=== PATIENT | female | born 1990 | race Caucasian/White ===

== ENCOUNTER 2018-03-06 21:25 | Outpatient (CLI) | payer OTHER ==
[2018-03-06 23:12] VITALS: BP 131/81
[2018-03-06 23:40] LABS: Bilirubin,Urine NEG (Negative); Blood,Urine NEG (Negative); Color,Urine Yellow (Yellow); Mucus,Urine FEW /HPF; Protein,Urine <15 mg/dL mg/dL (Negative); Urobilinogen,Urine < 2.0 mg/dL (<2.0)
[2018-03-06] MEDS ORDERED: LACTATED RINGERS 500 ML IV ONE (23:55)
== END 2018-03-07 00:03 | disposition home or self-care (01) ==
LOC: TRG 21:25
PROVIDERS: ATTEND Obstetrics & Gynecology
DX: O26.893 Other specified pregnancy related conditions, third trimester (principal); R60.9 Edema, unspecified; R51 Headache; R25.2 Cramp and spasm; Z87.891 Personal history of nicotine dependence; Z88.3 Allergy status to other anti-infective agents
CPT/HCPCS: 59025; 81001

== ENCOUNTER 2018-03-18 05:12 | Inpatient (IN) | payer OTHER ==
[2018-03-18] MEDS ORDERED: LACTATED RINGERS 1,000 ML ONE ×3 (06:36→11:09)
[2018-03-18 06:53] LABS: Hematocrit 32.2 % (30.3-42.9); Hemoglobin 10.4 gm/dl (10.1-14.3); Mean Corpuscular HGB Conc 32 % (30-34); Platelet Count 260 K/mm3 (140-440); Red Blood Count 5.43 M/mm3 (3.65-5.03); Red Cell Distribution Width 15.1 % (13.2-15.2)
[2018-03-18] MEDS: LACTATED RINGERS 1,000 ML IV SCH ×2 (07:00→08:00)
[2018-03-18 07:20] LABS: Mean Corpuscular Hemoglobin 19 pg (28-32); Mean Corpuscular Volume 59 fl (79-97)
--- NOTE | 2018-03-18 08:02 | History and Physical Report ---
History of Present Illness Date of examination: 03/18/18 Date of admission: 03/18/18 05:12 Chief complaint: Scheduled History of present illness: 27-year-old at ~ 38+1 weeks presents for primary , she is a [facility] patient. course has been complicated by pre- gestational diabetes, hypertension and morbid obesity. 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 denies: smoking, alcohol abuse, IV drug use - Obstetrical History Expected Date of Delivery: 03/31/18 Actual Gestation: 38 Week(s) 1 Day(s) : 2 Para: 0 Medications and Allergies Allergies Allergy/AdvReac Type Severity Reaction Status Date / Time benzoyl peroxide Allergy Swelling Verified 03/06/18 23:57 Review of Systems Constitutional: no weight gain, no fever, no chills Eyes: no diplopia Cardiovascular: no chest pain, no orthopnea, no syncope, no lightheadedness, no shortness of breath, no dyspnea on exertion, no paroxysmal nocturnal dyspnea, no high blood pressure Respiratory: no cough, no cough with sputum, no shortness of breath, no dyspnea on exertion Gastrointestinal: no abdominal pain, no nausea, no vomiting, no diarrhea, no heartburn, no indigestion Genitourinary: no vaginal bleeding, no vaginal discharge, no leakage of fluid, no contractions - Physical Exam Cardiovascular: Regular rate, Normal S1, Normal S2 Lungs: Positive: Clear to auscultation, Normal air movement Abdomen: Positive: normal appearance, soft. Negative: distention, tenderness, guarding, rigidity Genitourinary (Female): Positive: normal external genitalia Uterus: Positive: enlarged (EFW ~ 5000). Negative: tender Results Result Diagrams: 03/18/18 06:15 Abnormal lab results 03/18/18 Range/Units 06:15 RBC 5.43 H (3.65-5.03) M/mm3 MCV 59 L (79-97) fl MCH 19 L (28-32) pg All other labs normal. Assessment and Plan A: 27-year-old at 38+1 weeks presents for primary -Category 1 tracing Issues -Inspected macrosomia -Pre-gestational diabetes -Chronic hypertension -Hypothyroidism Meds: -Insulin [id number]/[id number]/56N -Levothyroxine 25 g daily P: -Obtain routine labs -She has been consented -Proceed to the OR once available - Patient Problems (1) 38 weeks gestation of Current Visit: Yes Status: Acute (2) Macrosomia affecting management of mother in third trimester, single gestation Current Visit: Yes Status: Acute (3) Diabetes in Current Visit: Yes Status: Acute (4) Hypertension affecting in third trimester Current Visit: Yes Status: Acute
[2018-03-18] MEDS ORDERED: PEPCID IV NR (08:30)
[2018-03-18] MEDS ORDERED: BICITRA PO NR (08:30)
[2018-03-18] MEDS ORDERED: REGLAN IV NR (08:30)
[2018-03-18] MEDS ORDERED: EMLA TP PRN (09:00)
[2018-03-18] MEDS ORDERED: ANCEF/STERILE WATER 2 GM/20 ML 2 GM/20 ML SYRINGE IV NR (09:00)
[2018-03-18] MEDS ORDERED: PITOCin/NS 20 UNIT/1000ML DRIP 20 UNITS/1,000 ML BAG IV SCH ×2 (09:00→12:00)
[2018-03-18] MEDS ORDERED: D5LR 1,000 ML IV SCH ×2 (09:00→12:00)
[2018-03-18] MEDS ORDERED: ASTRAMORPH PF 10MG/10ML ONE (09:23)
[2018-03-18] MEDS ORDERED: NEO SYNEPHRINE/NS Syringe(OR USE) IV ONE (09:23)
[2018-03-18] MEDS ORDERED: NACL 0.9% IR ONE (10:00)
[2018-03-18] MEDS ORDERED: WATER FOR IRRIG STERILE IR ONE (10:00)
[2018-03-18] MEDS ORDERED: SUBLIMAZE ONE (10:04)
[2018-03-18] MEDS ORDERED: TORADOL ONE (11:02)
[2018-03-18] MEDS ORDERED: SENOKOT PO PRN (11:33)
[2018-03-18] MEDS ORDERED: TUCKS PAD TP PRN (11:33)
[2018-03-18] MEDS ORDERED: NARCAN 0.4 MG/1 ML IV PRN ×2 (11:33→12:43)
[2018-03-18] MEDS ORDERED: ANUCORT-HC PR PRN (11:33)
[2018-03-18] MEDS ORDERED: LANSINOH TP PRN (11:33)
[2018-03-18] MEDS ORDERED: MYLICON PO PRN (11:33)
[2018-03-18] MEDS ORDERED: ZOFRAN IV PRN (11:33)
[2018-03-18] MEDS ORDERED: TYLENOL PO PRN (11:33)
[2018-03-18] MEDS ORDERED: MILK OF MAGNESIA PO PRN (11:33)
[2018-03-18] MEDS ORDERED: TORADOL IV PRN (11:33)
--- NOTE | 2018-03-18 11:33 | Operative Report ---
Operative Report Operative Report: DATE: 03/18/2018 PREOPERATIVE DIAGNOSIS: 27-year-old at ~ 38 weeks, Morbid obesity, Pre- gestational diabetic, macrosomia, Chronic hypertension, Hypothyroidism POSTOP DIAGNOSIS: As above NAME OF PROCEDURE: Primary low transverse section SURGEON: RAJNI FUNG MD CAMP COUNSELOR: Sindy ANESTHESIA: Combined spinal epidural EBL: 1000 mL PATHOLOGY SPECIMEN: None URINE OUTPUT: 50 mL concentrated FINDINGS: Male Infant in cephalic presentation, time of 10:45 AM, weight 10 lbs. 14 oz. or 4941 g, Apgars 8 and 8, normal uterus tubes and ovaries bilaterally DESCRIPTION OF PROCEDURE: After informed consent, patient was taken to the operating room where she was prepped and draped in a sterile fashion. Pfannestial incision was performed 2 cm above the pubic symphysis. This was then carried down to the underlying rectus fascia which was scored in the midline. The fascial incision was extended laterally with the use of Mckeon scissors, anterior leaf was then grasped with Marcela's elevated dissected sharply and bluntly off the underlying rectus. In a similar fashion the inferior leaf was grasped elevated dissected sharply and bluntly off the underlying rectus. The rectus was in the midline and the peritoneal cavity was entered without difficulty. After good visualization of the bladder the peritoneal layer was extended up and down; bladder blade was placed in the patient's pelvic cavity, bladder flap was created without difficulty. A hysterotomy incision was then performed with bloody amniotic fluid noted. Infant in cephalic presentation was delivered without difficulty in the usual manner; cord was clamped cut and infant was handed over to waiting NICU staff. The placenta was then delivered intact, the uterus was then exteriorized cleared of all clots and debris. Her hysterotomy incision was then closed in a running locked fashion with 0 Vicryl on a CTX; using the same suture were able to imbricate the initial layer. The uterus was then returned to the patient's pelvic cavity; the peritoneal edges were grasped with hemostats and Thais's; irrigation was used to clear the gutters of all clots and debris. Tisseel hemostatic agent was applied copiously over the hysterotomy incision. The bladder flap was then closed in a running fashion with 3-0 Vicryl. The peritoneal layer was closed in a running fashion with 3-0 Vicryl; the rectus was reapproximated with a single [id number] stitch. The fascia was then closed in a running fashion with 0 Vicryl; the subcutaneous layer was reapproximated with a single [id number] stitch. The skin was then closed in a subcuticular manner with 4-0 Monocryl. She tolerated the procedure well lap and instrument counts were correct 2, she did receive 3 grams of Ancef prior to the procedure. She is transferred to PACU in stable condition.
[2018-03-18] MEDS ORDERED: SODIUM CHLORIDE FLUSH SYRINGE 10 ML IV NR (12:00)
[2018-03-18] MEDS ORDERED: D50W (25GM) Syringe IV PRN (12:41)
[2018-03-18] MEDS ORDERED: NACL 0.9% 1000 ML 1,000 ML IV SCH (13:00)
[2018-03-18] MEDS ORDERED: MORPHINE PCA 30MG/30ML IV SCH (13:00)
[2018-03-18] MEDS: HumuLIN R SUB-Q SCH (18:03)
[2018-03-18 23:24] LABS: Hematocrit 23.6 % (30.3-42.9); Hemoglobin 7.7 gm/dl (10.1-14.3)
[2018-03-18] MEDS ORDERED: AMMONIA INHALANT IH ONE (23:41)
[2018-03-19] MEDS ORDERED: INFED IM ONE (00:53)
[2018-03-19] MEDS: FEOSOL PO SCH ×3 (01:28→21:31)
[2018-03-19] MEDS ORDERED: M-M-R II VACCINE SUB-Q ONE (06:00)
[2018-03-19] MEDS ORDERED: BOOSTRIX IM ONE (06:00)
[2018-03-19] MEDS: HumuLIN R SUB-Q SCH ×4 (07:20→21:27)
[2018-03-19 08:33] LABS: Hematocrit 25.3 % (30.3-42.9)
--- NOTE | 2018-03-19 09:39 | Progress Note ---
Assessment and Plan - Patient Problems (1) S/P primary low transverse Current Visit: Yes Status: Acute Plan to address problem: POD #1 - stable Continue routine postop orders Ambulation encouraged, as tolerated Anticipate discharge in 24-48 hours (2) Pregestational diabetes mellitus, modified White class B Current Visit: Yes Status: Acute Plan to address problem: Blood glucose 109 - 201 Continue sliding scale insulin (3) Anemia in puerperium, baby delivered during current episode of care Current Visit: Yes Status: Acute Plan to address problem: Asymptomatic Continue iron therapy Subjective - Subjective Date of service: 03/19/18 Principal diagnosis: POD #1; s/p Primary LTCS; Pregestational DM Patient reports: appetite normal, voiding normally, pain well controlled, flatus , ambulating normally, no dizzy ambulation, no bowel movement [place]: doing well, in NICU Objective - Vital Signs Latest vital signs: Vital Signs Temp Pulse Resp BP BP Pulse Ox 03/19/18 07:45 98.0 F 79 18 114/61 95 03/19/18 04:30 98.4 F 79 18 106/78 03/19/18 00:30 98.6 F 78 16 114/78 03/18/18 23:55 98.3 F 86 18 131/81 98 03/18/18 19:30 98.7 F 81 16 128/52 03/18/18 16:17 98.0 F 70 18 157/75 03/18/18 13:25 97.4 F L 70 20 133/53 03/18/18 13:08 64 12 124/64 100 03/18/18 12:15 62 12 100 03/18/18 12:10 60 18 136/55 100 03/18/18 12:00 97.8 F 65 14 122/42 100 03/18/18 10:24 86 98 03/18/18 10:19 85 98 03/18/18 10:14 85 98 03/18/18 10:09 101 H 98 03/18/18 10:07 85 112/73 03/18/18 10:04 86 99 Intake and Output 03/18/18 03/19/18 03/19/18 23:59 07:59 15:59 Intake Total 240 Output Total 1700 1800 Balance -1700 -1560 Intake: Intake, Free Water 240 Output: Urine 1700 1800 Indwelling Catheter 1700 Void 1800 Other: Total, Output Amount 600 400 # Voids Void 1 - Exam Cardiovascular: Present: Regular rate Abdomen: Present: normal appearance, soft Vulva: both: normal Uterus: Present: normal, firm, fundal height at umbilicus Incision: Present: normal, dry, dressed - Labs Labs: Abnormal lab results 03/18/18 03/18/18 03/18/18 Range/Units 09:46 13:06 17:58 Hgb (10.1-14.3) gm/dl Hct (30.3-42.9) % POC Glucose 147 H 132 H 109 H (70-105) 03/18/18 03/18/18 03/19/18 Range/Units 22:52 23:56 06:55 Hgb 7.7 L (10.1-14.3) gm/dl Hct 23.6 L D (30.3-42.9) % POC Glucose 127 H 201 H (70-105) 03/19/18 Range/Units 07:57 Hgb 8.0 L (10.1-14.3) gm/dl Hct 25.3 L (30.3-42.9) % POC Glucose (70-105)
[2018-03-19] MEDS ORDERED: FEOSOL PO SCH ×2 (10:00)
[2018-03-19] MEDS: COLACE PO SCH ×2 (11:56→21:31)
[2018-03-19] MEDS: PRENATAL VITAMIN PO SCH (11:56)
[2018-03-19] MEDS: MOTRIN PO PRN ×2 (13:51→20:10)
[2018-03-19] MEDS: PERCOCET 5/325 PO PRN ×2 (14:18→20:09)
[2018-03-20] MEDS: PERCOCET 5/325 PO PRN ×3 (04:12→19:36)
[2018-03-20] MEDS: MOTRIN PO PRN ×3 (04:12→19:36)
[2018-03-20] MEDS: HumuLIN R SUB-Q SCH ×4 (06:20→18:30)
--- NOTE | 2018-03-20 10:09 | Progress Note ---
Assessment and Plan 1) S/P primary low transverse Current Visit: Yes Status: Acute Plan to address problem: POD #2 - stable Continue routine postop orders Ambulation encouraged, as tolerated Anticipate discharge 03/21/18 (2) Pregestational diabetes mellitus, modified White class B Current Visit: Yes Status: Acute Plan to address problem: Blood glucose 114 - 201 Continue sliding scale insulin (3) Anemia in puerperium, baby delivered during current episode of care Current Visit: Yes Status: Acute Plan to address problem: Asymptomatic Continue iron therapy Subjective - Subjective Principal diagnosis: POD #2; s/p Primary LTCS; Pregestational DM(insulin dependent) Interval history: See H&P and Op-report Patient reports: appetite normal, voiding normally, pain well controlled, flatus , ambulating normally, no bowel movement : in NICU (Blood sugar control) Objective - Vital Signs Latest vital signs: Vital Signs Temp Pulse Resp BP BP Pulse Ox 03/20/18 08:04 98.4 F 70 20 112/64 100 03/20/18 01:10 98.2 F 64 20 113/67 97 03/19/18 15:31 98.8 F 76 18 129/71 03/19/18 12:15 16 Intake and Output 03/19/18 03/20/18 03/20/18 23:59 07:59 15:59 Intake Total 240 240 Balance 240 240 Intake: Oral 240 240 Other: Total, Intake Amount 240 120 # Voids Void 1 1 - Exam Breasts: Present: normal Cardiovascular: Present: Regular rate, Normal S1, Normal S2, No murmurs Lungs: Present: Clear to auscultation, Normal air movement Abdomen: Present: normal appearance, soft, tenderness (as expected Post-op), normal bowel sounds. Absent: distention Vulva: both: normal Uterus: Present: firm, fundal height at umbilicus Extremities: Present: normal, edema (1+) Deep Tendon Reflex Grade: Normal +2 Incision: Present: normal (Pressure dressing removed, LTI clsoed with SQ sutures and steri strips, CDI, scant dried blood noted. Reviewed incision care with pt. ), dry, intact - Labs Labs: Abnormal lab results 03/19/18 03/19/18 03/20/18 Range/Units 13:55 21:11 06:19 POC Glucose 114 H 188 H 136 H (70-105)
[2018-03-20] MEDS: COLACE PO SCH ×2 (10:35→22:00)
[2018-03-20] MEDS: FEOSOL PO SCH ×3 (10:35→19:36)
[2018-03-20] MEDS: PRENATAL VITAMIN PO SCH (10:35)
[2018-03-21] MEDS: HumuLIN R SUB-Q SCH (00:17)
[2018-03-21] MEDS: PERCOCET 5/325 PO PRN ×2 (05:59→12:48)
[2018-03-21] MEDS: MOTRIN PO PRN ×2 (06:00→12:50)
--- NOTE | 2018-03-21 09:34 | Progress Note ---
Assessment and Plan - Patient Problems (1) S/P primary low transverse Current Visit: Yes Status: Acute Plan to address problem: POD #3 - stable Discharge to home today Follow up at [facility] in 1 week for incision check (2) Pregestational diabetes mellitus, modified White class B Current Visit: Yes Status: Acute Plan to address problem: Last blood glucose 93 Continue home blood glucose check 4x/d and insulin regimen F/U with Box Strapper (3) Anemia in puerperium, baby delivered during current episode of care Current Visit: Yes Status: Acute Plan to address problem: Asymptomatic Continue iron therapy Subjective - Subjective Date of service: 03/21/18 Principal diagnosis: POD #3; s/p Primary LTCS; Pregestational DM(insulin dependent) Patient reports: appetite normal, voiding normally, pain well controlled, flatus , ambulating normally [place]: doing well, in NICU Objective - Vital Signs Latest vital signs: Vital Signs Temp Pulse Resp BP BP Pulse Ox 03/21/18 00:00 98.9 F 68 20 114/75 99 03/20/18 17:18 98.5 F 70 16 134/63 97 Intake and Output 03/20/18 03/21/18 03/21/18 23:59 07:59 15:59 Intake Total 480 Balance 480 Intake: Oral 480 Other: Total, Intake Amount 240 Voiding Method Toilet # Voids Indwelling Catheter 2 Void 1 - Exam Abdomen: Present: normal appearance, soft Vulva: both: normal Uterus: Present: normal, firm, fundal height below umbilicus Extremities: Present: edema (2+) Incision: Present: normal, dry, intact - Labs Labs: Abnormal lab results 03/20/18 03/20/18 03/21/18 Range/Units 12:52 18:14 00:01 POC Glucose 134 H 117 H 206 H (70-105)
--- NOTE | 2018-03-21 09:38 | Discharge Summary ---
Providers - Providers Date of Admission: 03/18/18 05:12 Date of discharge: 03/21/18 Attending physician: SINDY LOUIS MD Primary care physician: SINDY LOUIS MD Hospitalization Reason for admission: section, IUP at term Delivery: Procedure: primary low transverse Episiotomy: none Laceration: none Incision: normal, dry, intact Other procedures: none complications: none Discharge diagnosis: IUP at term delivered [place] baby: male Hospital course: Uncomplicated Condition at discharge: Stable Disposition: [place]-01 TO HOME OR SELFCARE - Discharge Diagnoses (1) S/P primary low transverse Status: Acute (2) Pregestational diabetes mellitus, modified White class B Status: Acute (3) Anemia in puerperium, baby delivered during current episode of care Status: Acute Comment: Asymptomatic Continue iron therapy Plan - Discharge Medications Prescriptions: Ferrous Sulfate [Feosol 325 MG tab] 325 mg PO TID #90 tablet - Provider Discharge Summary Activity: routine, no sex for 6 weeks, no heavy lifting 4 weeks, no strenuous exercise Diet: routine Instructions: routine Additional instructions: [] Smoking cessation referral if applicable(refer to patient education folder for contact #) [] Refer to [facility] Booklet Call your doctor immediately for: * Fever > 100.5 * Heavy vaginal bleeding ( >1 pad per hour) * Severe persistent headache * Shortness of breath * Reddened, hot, painful area to leg or breast * Drainage or odor from incision. * Keep incision clean and dry at all times and follow doctor's instructions regarding bathing/showering - Follow up plan Follow up: SINDY LOUIS MD [Primary Care Provider] - 7 Days (Follow up at [facility] in 1 week for incision check)
[2018-03-21 09:49] VITALS: BP 129/80
[2018-03-21] MEDS: FEOSOL PO SCH (12:47)
[2018-03-21] MEDS: COLACE PO SCH (12:48)
== END 2018-03-21 21:00 | disposition home or self-care (01) | DRG 765 ==
LOC: APU 05:12 → OB 13:14
PROVIDERS: ADMIT Obstetrics & Gynecology; ATTEND Obstetrics & Gynecology
PROC: 10D00Z1 Extraction of Products of Conception, Low, Open Approach (ICD-10-PCS; principal; 2018-03-18)
PROC: 3E0234Z Introduction of Serum, Toxoid and Vaccine into Muscle, Percutaneous Approach (ICD-10-PCS; 2018-03-19)
DX: O34.211 Maternal care for low transverse scar from previous cesarean delivery (principal); D62 Acute posthemorrhagic anemia; O10.02 Pre-existing essential hypertension complicating childbirth; O36.63X0 Maternal care for excessive fetal growth, third trimester, not applicable or unspecified; O24.429 Gestational diabetes mellitus in childbirth, unspecified control; O99.02 Anemia complicating childbirth; O99.284 Endocrine, nutritional and metabolic diseases complicating childbirth; E03.9 Hypothyroidism, unspecified; Z3A.38 38 weeks gestation of pregnancy; Z37.0 Single live birth; Z88.8 Allergy status to other drugs, medicaments and biological substances; Z23 Encounter for immunization; O99.214 Obesity complicating childbirth; E66.01 Morbid (severe) obesity due to excess calories; Z68.34 Body mass index [BMI] 34.0-34.9, adult
CPT/HCPCS: 36415; 82962; 85014; 85018; 85027; 86592; 86850; 86900; 86901; 99211; G0463; J1750; J1815; J1885; J2270; J2274; J2370; J2590; J2765; J3010; J7120; J7121